=== PATIENT | male | born 1980 | race Caucasian/White ===

== ENCOUNTER 2017-04-19 16:24 | Emergency (ER) | payer OTHER ==
[~2017-04-19] VITALS: Ht 172.7 cm; Wt 68.2 kg
[2017-04-19 16:31] VITALS: TEMP 99
[2017-04-19] MEDS ORDERED: CYMBALTA 60MG60 MG PO (16:35)
[2017-04-19] MEDS ORDERED: NORCO 325 MG-51 TAB PO (16:35)
[2017-04-19 17:17] LABS: BASO # 0.1 (0.0-0.2); BASO % 0.6 % (0.0-2.0); EOS # 0.5 (0.0-0.7); EOS % 2.8 % (0-4.0); GRAN # 13.6 (1.4-6.5); GRAN % 72.9 % (42.2-75.2); HEMATOCRIT 40.6 % (42.0-52.0); HEMOGLOBIN 13.6 g/dl (13.5-18.0); LYMPH # 3.2 (1.2-3.4); LYMPH % 17.1 % (20.0-51.0); MEAN CELL VOLUME 89 fl (80.0-100.0); MEAN CORPUSCULAR HEMOGLOBIN 30 pg (27.0-31.0); MEAN CORPUSCULAR HGB CONC 34 g/dl (33.0-37.0); MEAN PLATELET VOLUME 9.5 fl (7.4-10.4); MONO # 1.2 (0.1-0.6); MONO % 6.2 % (1.7-9.3); PLATELET COUNT 202 K/mm3 (130-400); RED BLOOD COUNT 4.57 M/mm3 (4.20-5.60); WHITE BLOOD COUNT 18.6 K/mm3 (4.8-10.8)
[2017-04-19 17:29] LABS: ADJUSTED CALCIUM 8.2 mg/dL (8.4-10.2); ALBUMIN 4.2 gm/dL (3.5-5.0); BILIRUBIN,TOTAL 0.7 mg/dL (0.0-1.0); C-REACTIVE PROTEIN 6.1 mg/dL (0.0-0.9); CALCIUM 8.4 mg/dL (8.4-10.2); POTASSIUM 3.8 mmol/L (3.4-5.0); TOTAL PROTEIN 6.8 gm/dL (6.4-8.2)
[2017-04-19 20:03] VITALS: BP 135/84; PULSE 94
== END 2017-04-19 20:08 | disposition short-term general hospital (02) ==
LOC: COL.ER 16:24
PROVIDERS: Family Medicine
DX: N49.2 Inflammatory disorders of scrotum (principal)
CPT/HCPCS: J1885; J1956

== ENCOUNTER 2017-05-14 11:20 | Emergency (ER) | payer OTHER ==
[~2017-05-14] VITALS: Ht 172.7 cm; Wt 70.5 kg
[~2017-05-14 11:20] MED LIST: CYMBALTA 60MG60 MG PO; NORCO 325 MG-51 TAB PO
[2017-05-14] MEDS ORDERED: NORCO 325 MG-51 TAB PO (12:10)
[2017-05-14 12:59] LABS: PH 5 (5-8); SQUAMOUS EPITHELIAL 0-2 /hpf; URINE APPEARANCE Clear; URINE BACTERIA None Seen /hpf; URINE BILIRUBIN Negative (NEGATIVE); URINE BLOOD 1+ (NEGATIVE); URINE COLOR Yellow; URINE GLUCOSE Negative (NEGATIVE); URINE KETONE Negative (NEGATIVE); URINE UROBILINOGEN Negative (NEGATIVE); URINE WBC 0-2 /hpf
[2017-05-14 13:06] VITALS: BP 118/75; PULSE 80; TEMP 99.3
== END 2017-05-14 13:09 | disposition home or self-care (01) ==
LOC: COL.ER 11:20
PROVIDERS: Emergency Medicine
DX: G89.29 Other chronic pain (principal); N50.82 Scrotal pain; N50.811 Right testicular pain; R10.2 Pelvic and perineal pain
CPT/HCPCS: J1885

== ENCOUNTER → 2017-08-31 | Outpatient (CLI) | payer OTHER | LOC: COL.CARD 09:41 | DX: R56.9 Unspecified convulsions (principal) ==

== ENCOUNTER 2017-09-10 12:32 | Emergency (ER) | payer OTHER ==
[~2017-09-10] VITALS: Ht 172.7 cm; Wt 72.7 kg
[2017-09-10 12:34] VITALS: BP 134/82; PULSE 91; TEMP 98.1
[2017-09-10] MEDS ORDERED: LYRICA 150MG C150 MG PO (12:37)
[2017-09-10] MEDS ORDERED: BUSPAR10 MG PO (12:38)
[2017-09-10] MEDS ORDERED: MINIPRESS 1M1 MG/CAP PO (13:05)
[2017-09-10] MEDS ORDERED: NORCO 325 MG-51 TAB PO (13:06)
[2017-09-10] MEDS ORDERED: SINEQUAN 1010 MG/CAP PO (13:06)
== END 2017-09-10 13:55 | disposition home or self-care (01) ==
LOC: COL.ER 12:32
DX: S83.91XA Sprain of unspecified site of right knee, initial encounter (principal); X50.0XXA Overexertion from strenuous movement or load, initial encounter; Z98.52 Vasectomy status
CPT/HCPCS: L1830